=== PATIENT | female | born 1935 | race Caucasian/White ===

== ENCOUNTER 2016-11-14 07:45 | Day surgery (SDC) | payer MEDICARE, BC ==
[2016-11-14] MEDS ORDERED: Lactated Ringers 1,000 ML IV SCH (08:00)
[2016-11-14] MEDS ORDERED: Sodium Chloride 0.9% 10 ML Syringe FLUSH PRN (08:00)
[2016-11-14] MEDS ORDERED: Propofol 200 MG/20 ML SDV ONE ×2 (08:41→09:07)
--- NOTE | 2016-11-14 09:12 | PCM.PN ---
- General Info Date of Service: 11/14/16 - Review of Systems Systems Review Comment:: 80-year-old female recently noted to have guaiac positive stools referred for her first colonoscopy. She is medically stable to proceed with no significant recent change in her health status. I have discussed the proposed colonoscopy with the patient. Risks such as but not limited to bleeding and GI injury reviewed. She appears to understand and agrees to proceed. - Patient Data Vitals - most recent: Last Vital Signs Temp 98.7 F 11/14/16 08:16 Pulse 76 11/14/16 08:16 Resp 20 11/14/16 08:16 BP 111/58 L 11/14/16 08:16 Pulse Ox 96 11/14/16 08:16 Weight - most recent: 58.967 kg Med Orders - Current: Current Medications Lactated Ringer's (Ringers, Lactated) 1,000 mls @ 125 mls/hr IV ASDIRECTED EVAN Last Admin: 11/14/16 08:49 Dose: 125 mls/hr Sodium Chloride (Saline Flush) 10 ml FLUSH ASDIRECTED PRN PRN Reason: Keep Vein Open Discontinued Medications Propofol (Diprivan 20 Ml) Confirm Administered Dose 400 mg .ROUTE .STK-MED ONE Stop: 11/14/16 08:42 - Problem List Review Problem List Initiated/Reviewed/Updated: Yes - Assessment Assessment:: Guaiac positive stools - Plan Plan:: Colonoscopy
--- NOTE | 2016-11-14 09:58 | PCM.OPNOTE ---
- General Post-Op/Procedure Note Date of Surgery/Procedure: 11/14/16 Operative Procedure(s): Colonoscopy with polypectomy Findings: multiple colon polyps and moderate sigmoid diverticulosis Pre Op Diagnosis: Guaiac positive stools Post-Op Diagnosis: Colon polyps. Diverticulosis Anesthesia Technique: MAC Primary Surgeon: Sheldon Sainz Pathology: Colon polyps Output, Urine Amount: 0 EBL in mLs: 2 Complications: None Condition: Good Free Text/Narrative:: Intake & Output 11/13/16 11/14/16 11/14/16 22:59 06:59 14:59 Intake Total 700 Balance 700
[2016-11-14 10:18] VITALS: BP 110/70
--- NOTE | 2016-11-14 10:42 | OR ---
Date of Procedure: 11/14/2016 PREOPERATIVE DIAGNOSIS: Guaiac-positive stools. POSTOPERATIVE DIAGNOSES: 1. Colon polyps. 2. Diverticulosis. OPERATION PERFORMED: Colonoscopy with polypectomy. INDICATIONS FOR SURGERY: This 80-year-old female was referred for her initial colonoscopy. She was recently noted to have guaiac-positive stools. FINDINGS: Multiple polyps were noted on today's exam. She has a 12 mm pedunculated polyp in the rectum, 8 cm from the anal verge. She has a cluster of three polyps in the mid transverse colon, these range in size from 15 to 5 mm. There is a sigmoid colon polyp at 30 cm from the anal verge, which is 7 mm in size. The patient also has a moderate degree of sigmoid diverticulosis that does not appear acutely inflamed. DESCRIPTION OF PROCEDURE: The patient was taken to the operating room. She was given intravenous sedation and with her in the left lateral decubitus position, digital rectal exam was performed showing no rectal masses. The Olympus colonoscope was inserted into the rectum, retroflexed, examination of the rectal canal was performed. In the rectum, the above-described polyp was identified, this was removed with a cautery snare and retrieved into a polyp trap. The scope was then advanced to the mid transverse colon, where the cluster of three polyps was noted. The smaller of the two polyps were removed with a single pass of cautery snare and retrieved into a polyp trap. The larger polyp was removed piecemeal also with cautery snare, it did seem as if the polyp was completely removed and all fragments collected into the polyp trap. These three polyps, all in close proximity to each other, were submitted as a single specimen. The scope was then advanced to the cecum and cecal acquisition was confirmed by noting the normal internal cecal anatomy including the appendiceal orifice and ileocecal valve, and identifying the light to transilluminate the abdominal wall and the right lower quadrant. After examining the cecum, the scope was slowly withdrawn sequentially re-examining the colonic segments, an additional polyp in the sigmoid colon was identified, this was also removed with a cautery snare and retrieved into a polyp trap. There was no sign of any complication at the polypectomy sites or any other area during the colonoscopy. After the entire colon and rectum had been fully examined, the scope was then removed. The patient was taken from the operating room in satisfactory condition. ESTIMATED BLOOD LOSS: 2 mL. COMPLICATIONS: None. PROGNOSIS: Good. JOSS Sainz MD /[id number]
== END 2016-11-14 11:06 | disposition home or self-care (01) ==
LOC: LL.SDS 07:45
PROVIDERS: ATTEND Surgery
DX: D12.3 Benign neoplasm of transverse colon (principal); D12.5 Benign neoplasm of sigmoid colon; D12.8 Benign neoplasm of rectum; K57.30 Diverticulosis of large intestine without perforation or abscess without bleeding; I10 Essential (primary) hypertension; Z86.73 Personal history of transient ischemic attack (TIA), and cerebral infarction without residual deficits; E78.00 Pure hypercholesterolemia, unspecified; N39.3 Stress incontinence (female) (male); G25.0 Essential tremor; E78.5 Hyperlipidemia, unspecified; Z98.890 Other specified postprocedural states; Z85.828 Personal history of other malignant neoplasm of skin; Z79.82 Long term (current) use of aspirin; Z79.899 Other long term (current) drug therapy
CPT/HCPCS: 45385; J2704; J7120; 00810-QZ; 88305

== ENCOUNTER 2017-09-11 15:16 | Inpatient (IN) | payer MEDICARE, BC ==
[2017-09-11] MEDS ORDERED: Ondansetron 4 MG/2 ML SDV IVPUSH PRN (16:08)
[2017-09-11] MEDS ORDERED: Sodium Chloride 0.9% 1,000 ML IV SCH (16:15)
--- NOTE | 2017-09-11 16:26 | PCM.HP ---
H&P History of Present Illness - General Date of Service: 09/11/17 Admit Problem/Dx: Admission Diagnosis/Problem Admission Diagnosis/Problem GI bleed not requiring more than 4 units of blood in 24 hours, ICU, or surgery Source of Information: Patient History Limitations: Reports: No Limitations - History of Present Illness Initial Comments - Free Text/Narative: Patient presents to the clinic for physical examination and states having shortness of breath for 3 weeks, difficult to shovel snow and climb steps. Patient has to sit down for a few minutes to rest. Patient hasnt noticed any blood in her stool or urine, had colonscopy in November 2016 with three polys removed. Patient is able to lay down in bed without difficulty, has had 10 pound weight loss over the last year, denies any chest pain. Onset of Symptoms: Reports: Gradual Improves with: Reports: Rest Worsens with: Reports: Movement Associated Symptoms: Reports: Shortness of Breath - Related Data Allergies/Adverse Reactions: Allergies Allergy/AdvReac Type Severity Reaction Status Date / Time Dairy Products Allergy INTOLERANCE Verified 11/14/16 08:18 Home Medications: Home Meds Aspirin [Halfprin] 81 mg PO DAILY 11/14/16 [History] Propranolol [Inderal] 20 mg PO DAILY 11/14/16 [History] Past Medical History HEENT History: Reports: Hard of Hearing, Impaired Vision Other HEENT History: Wears glasses. Bilateral Hearing aides Cardiovascular History: Reports: Hypertension Other Cardiovascular History: Varicose veins Respiratory History: Reports: None Gastrointestinal History: Reports: None Genitourinary History: Reports: Urinary Incontinence Musculoskeletal History: Reports: Osteoarthritis, Other (See Below) Other Musculoskeletal History: Right great toe bunion Neurological History: Reports: CVA Psychiatric History: Reports: None Endocrine/Metabolic History: Reports: None Hematologic History: Reports: None Immunologic History: Reports: None Oncologic (Cancer) History: Reports: Basal Cell Carcinoma Dermatologic History: Reports: Other (See Below) Other Dermatologic History: Basal cell carcinoma - Past Surgical History Musculoskeletal Surgical History: Reports: Other (See Below) Dermatological Surgical History: Reports: Other (See Below) Social & Family History - Tobacco Use Smoking Status *Q: Never Smoker Second Hand Smoke Exposure: No - Caffeine Use Caffeine Use: Reports: Coffee - Recreational Drug Use Recreational Drug Use: No H&P Review of Systems - Review of Systems: Review Of Systems: See Below General: Reports: Malaise, Fatigue, Weight Loss HEENT: Reports: No Symptoms Pulmonary: Reports: Shortness of Breath Cardiovascular: Reports: No Symptoms Gastrointestinal: Reports: No Symptoms Genitourinary: Reports: No Symptoms Musculoskeletal: Reports: No Symptoms Skin: Reports: No Symptoms Psychiatric: Reports: No Symptoms Neurological: Reports: No Symptoms Hematologic/Lymphatic: Reports: Anemia Immunologic: Reports: No Symptoms Exam - Exam Exam: See Below - Exam General: Alert, Oriented, Cooperative HEENT: Conjunctiva Clear, EACs Clear, EOMI (hearing aids), Nares Patent, Posterior Pharynx Clear Neck: Supple, Trachea Midline Lungs: Clear to Auscultation, Normal Respiratory Effort Cardiovascular: Regular Rate, Regular Rhythm GI/Abdominal Exam: Normal Bowel Sounds, Soft, Non-Tender, No Organomegaly, No Distention, No Abnormal Bruit, No Mass, Pelvis Stable Rectal (Female) Exam: Normal Exam, Normal Rectal Tone, Heme + Stool Back Exam: Normal Inspection, Full Range of Motion Extremities: Normal Inspection, Normal Range of Motion, Non-Tender, No Pedal Edema, Normal Capillary Refill Peripheral Pulses: 1+: Dorsalis Pedis (L), Dorsalis Pedis (R) Skin: Warm, Dry, Intact Neurological: Cranial Nerves Intact, Reflexes Equal Bilateral Neuro Extensive - Mental Status: Alert, Oriented x3, Normal Mood/Affect, Normal Cognition, Memory Intact Neuro Extensive - Motor, Sensory, Reflexes: CN II-XII Intact, Normal Gait, Normal Reflexes Psychiatric: Alert, Normal Affect, Normal Mood *Q Meaningful Use (ADM) - VTE *Q VTE Criteria *Q: - Stroke *Q Stroke Criteria *Q: - AMI *Q AMI Criteria *Q: - Problem List (1) GI bleed SNOMED Code(s): 16378099 ICD Code: K92.2 - GASTROINTESTINAL HEMORRHAGE, UNSPECIFIED Status: Acute Current Visit: Yes Qualifiers: GI bleed type/associated pathology: unspecified gastrointestinal hemorrhage type Qualified Code(s): K92.2 - Gastrointestinal hemorrhage, unspecified (2) Anemia SNOMED Code(s): 881445647 ICD Code: D64.9 - ANEMIA, UNSPECIFIED Status: Acute Current Visit: Yes (3) Dyspnea on exertion SNOMED Code(s): 08449767 ICD Code: R06.09 - OTHER FORMS OF DYSPNEA Status: Acute Current Visit: Yes Problem List Initiated/Reviewed/Updated: Yes Orders Last 24hrs: Active Orders 24 hr Category Date Time Status Patient Status [ADT] Routine ADT 09/11/17 16:08 Ordered Antiembolic Devices [RC] PER UNIT ROUTINE Care 09/11/17 16:12 Ordered Cardiac Monitoring [RC] CONTINUOUS Care 09/11/17 16:11 Ordered Intake and Output [RC] QSHIFT Care 09/11/17 16:11 Ordered Oxygen Therapy [RC] PRN Care 09/11/17 16:08 Ordered Oxygen Therapy [RC] PRN Care 09/11/17 16:20 Ordered Peripheral IV Care [RC] . DIRECTED Care 09/11/17 16:12 Ordered Up to Chair [RC] ASDIRECTED Care 09/11/17 16:08 Ordered VTE/DVT Education [RC] PER UNIT ROUTINE Care 09/11/17 16:08 Ordered Vital Signs [RC] Q4H Care 09/11/17 16:08 Ordered Consult to Case Management [CONS] Routine Cons 09/11/17 16:08 Ordered Nothing per Oral Now Diet [DIET] Diet 09/11/17 Dinner Ordered Chest 2V [CR] Routine Exams 09/11/17 15:15 Taken Chest w wo Cont [CT] Urgent Exams 09/11/17 16:20 Ordered CBC WITH AUTO DIFF [HEME] DAILY Lab 09/12/17 05:11 Ordered CBC WITH AUTO DIFF [HEME] DAILY Lab 09/13/17 05:11 Ordered CBC WITH AUTO DIFF [HEME] DAILY Lab 09/14/17 05:11 Ordered CBC WITH AUTO DIFF [HEME] DAILY Lab 09/15/17 05:11 Ordered COMPREHENSIVE METABOLIC PN,CMP [CHEM] DAILY Lab 09/12/17 05:11 Ordered COMPREHENSIVE METABOLIC PN,CMP [CHEM] DAILY Lab 09/13/17 05:11 Ordered COMPREHENSIVE METABOLIC PN,CMP [CHEM] DAILY Lab 09/14/17 05:11 Ordered COMPREHENSIVE METABOLIC PN,CMP [CHEM] DAILY Lab 09/15/17 05:11 Ordered D-DIMER QUANTITATIVE [COAG] Routine Lab 09/12/17 05:11 Ordered OCCULT BLOOD DIAGNOSTIC [OP] DAILY Lab 09/11/17 16:19 Ordered OCCULT BLOOD DIAGNOSTIC [OP] DAILY Lab 09/12/17 16:19 Ordered RED BLOOD CELLS LP [BBK] Stat Lab 09/11/17 16:18 Ordered TYPE AND SCREEN [BBK] Urgent Lab 09/11/17 16:13 Ordered Ondansetron [Zofran] Med 09/11/17 16:08 Ordered 4 mg IVPUSH Q6H PRN Pantoprazole [ProTONIX IV] 80 mg Med 09/11/17 16:30 Ordered Sodium Chloride 0.9% [Normal Saline] 100 ml IV .Continuous Sodium Chloride 0.9% @ 50 MLS/HR(1000ml) Med 09/11/17 16:15 Ordered Sodium Chloride 0.9% [Normal Saline] 1,000 ml IV ASDIRECTED Sodium Chloride 0.9% [Saline Flush] Med 09/11/17 16:08 Ordered 10 ml FLUSH ASDIRECTED PRN Antiembolic Hose [OM.PC] Per Unit Routine Oth 09/11/17 16:11 Ordered Peripheral IV Insertion Adult [OM.PC] Routine Oth 09/11/17 16:08 Ordered Saline Lock Insert [OM.PC] Routine Oth 09/11/17 16:08 Ordered Transfuse RBC [Transfuse Red Blood Cells] [COMM] Oth 09/11/17 16:13 Ordered Routine Resuscitation Status Routine Resus Stat 09/11/17 16:08 Ordered Medication Orders Sodium Chloride (Normal Saline) 1,000 mls @ 50 mls/hr IV ASDIRECTED EVAN Pantoprazole Sodium 80 mg/ (Sodium Chloride) 100 mls @ 10 mls/hr IV .Continuous EVAN Ondansetron HCl (Zofran) 4 mg IVPUSH Q6H PRN PRN Reason: Nausea/Vomiting Sodium Chloride (Saline Flush) 10 ml FLUSH ASDIRECTED PRN PRN Reason: Keep Vein Open Assessment/Plan Comment:: 09/11/2017 Patient will be admitted to inpatient status. Will need blood transfusions and IV Protonix drip. Elevated D Dimer, will order chest CT scan and venous ultrasound of LE. Patient is Full Code and wanting to stay in [place] for now, but if condition worsens will agree to transfer to [place]. Will monitor labs and ordered occult stools. Abd and pelvis CT scan in the morning. Hold aspirin. Discussed with Dr Donte Mackenzie, [employer]
[2017-09-11] MEDS ORDERED: Furosemide 40 MG/4 ML VIAL IVPUSH ONE ×3 (16:52→22:00)
[2017-09-11] MEDS ORDERED: Iopamidol 755 Mg/ML 100 ML Bottle IVPUSH ONE (17:46)
[2017-09-11] MEDS: Pantoprazole 80 MG in Sodium Chloride 0.9% 100 ML IV SCH (19:39)
[2017-09-11] MEDS: Sodium Chloride 0.9% 100 ML IV SCH ×2 (19:50→22:14)
[2017-09-11] MEDS: Sodium Chloride 0.9% 10 ML Syringe FLUSH PRN (22:15)
[2017-09-12] MEDS: Sodium Chloride 0.9% 10 ML Syringe FLUSH PRN (02:26)
[2017-09-12] MEDS ORDERED: Furosemide 40 MG/4 ML VIAL IVPUSH ONE (03:00)
[2017-09-12] MEDS ORDERED: Acetaminophen 325 MG Tab PO PRN (05:42)
[2017-09-12] MEDS ORDERED: Menthol/Methyl Salicylate 85 GM Tube TOP PRN ×2 (05:42→05:52)
[2017-09-12] MEDS: Pantoprazole 80 MG in Sodium Chloride 0.9% 100 ML IV SCH (05:44)
[2017-09-12] MEDS: Propranolol 20 MG Tab PO SCH ×2 (07:05→11:37)
[2017-09-12] MEDS ORDERED: Iopamidol 612 MG/ML 100 ML Bottle IVPUSH ONE (09:53)
[2017-09-12 16:05] VITALS: BP 146/67
--- NOTE | 2017-09-12 17:05 | PCM.PN ---
- General Info Date of Service: 09/12/17 Admission Dx/Problem (Free Text): Admission Diagnosis/Problem Admission Diagnosis/Problem GI bleed not requiring more than 4 units of blood in 24 hours, ICU, or surgery Functional Status: Reports: Pain Controlled, Tolerating Diet - Review of Systems General: Reports: No Symptoms HEENT: Reports: No Symptoms Pulmonary: Reports: No Symptoms Cardiovascular: Reports: No Symptoms Gastrointestinal: Reports: No Symptoms Genitourinary: Reports: No Symptoms Musculoskeletal: Reports: No Symptoms Skin: Reports: No Symptoms Neurological: Reports: No Symptoms Psychiatric: Reports: No Symptoms - Patient Data Vitals - Most Recent: Last Vital Signs Temp 97.5 F 09/12/17 16:00 Pulse 61 09/12/17 16:00 Resp 16 09/12/17 16:00 BP 146/67 H 09/12/17 16:00 Pulse Ox 99 09/12/17 16:00 Weight - Most Recent: 124 lb I&O - Last 24 Hours: Intake & Output 09/12/17 09/12/17 09/12/17 06:59 14:59 22:59 Intake Total 975 290 Output Total 2100 300 500 Balance -1125 -10 -500 Lab Results Last 24 Hours: Laboratory Results - last 24 hr 09/11/17 09/12/17 09/12/17 Range/Units 17:15 07:18 07:18 WBC 6.0 (4.0-10.2) K/uL RBC 4.57 (3.77-5.09) M/uL Hgb 10.1 L D (11.7-15.5) g/dL Hct 33.1 L (34.0-46.0) % MCV 72.4 L D (84.0-98.0) fL MCH 22.1 L (28.2-33.3) pg MCHC 30.5 L (31.7-36.0) g/dL RDW 21.3 H (11.2-14.1) % Plt Count 381 H (150-350) K/uL Neut % (Auto) 69.0 (45.0-80.0) % Lymph % (Auto) 17.8 (10.0-50.0) % Darke % (Auto) 9.5 (2.0-14.0) % Eos % (Auto) 1.5 (0.0-5.0) % Baso % (Auto) 2.2 H (0.0-2.0) % Neut # (Auto) 4.12 (1.40-7.00) K/uL Lymph # (Auto) 1.06 (0.50-3.50) K/uL Darke # (Auto) 0.57 (0.00-1.00) K/uL Eos # (Auto) 0.09 (0.00-0.50) K/uL Baso # (Auto) 0.13 (0.00-0.20) K/uL PT (9.8-11.7) SEC INR APTT (22.1-29.8) SEC D-Dimer, Quantitative (0-400) ng/mL Sodium 140 (136-145) mmol/L Potassium 3.4 L (3.5-5.1) mmol/L Chloride 100 (98-107) mmol/L Carbon Dioxide 27.2 (21.0-32.0) mmol/L BUN 16 (7-18) mg/dL Creatinine 1.03 (0.51-1.17) mg/dL Est Cr Clr Drug Dosing 32.87 mL/min Estimated GFR (MDRD) 52 mL/min Glucose 110 H (74-106) mg/dL Calcium 9.2 (8.5-10.1) mg/dL Total Bilirubin 2.3 H (0.2-1.0) mg/dL AST 15 (15-37) U/L ALT 21 (12-78) U/L Alkaline Phosphatase 96 (46-116) IU/L Total Protein 7.5 (6.4-8.2) g/dL Albumin 4.0 (3.4-5.0) g/dL Blood Type O POSITIVE Gel Antibody Screen Negative Crossmatch See Detail 09/12/17 09/12/17 Range/Units 07:18 07:18 WBC (4.0-10.2) K/uL RBC (3.77-5.09) M/uL Hgb (11.7-15.5) g/dL Hct (34.0-46.0) % MCV (84.0-98.0) fL MCH (28.2-33.3) pg MCHC (31.7-36.0) g/dL RDW (11.2-14.1) % Plt Count (150-350) K/uL Neut % (Auto) (45.0-80.0) % Lymph % (Auto) (10.0-50.0) % Darke % (Auto) (2.0-14.0) % Eos % (Auto) (0.0-5.0) % Baso % (Auto) (0.0-2.0) % Neut # (Auto) (1.40-7.00) K/uL Lymph # (Auto) (0.50-3.50) K/uL Darke # (Auto) (0.00-1.00) K/uL Eos # (Auto) (0.00-0.50) K/uL Baso # (Auto) (0.00-0.20) K/uL PT 11.0 (9.8-11.7) SEC INR 1.0 APTT 22.6 (22.1-29.8) SEC D-Dimer, Quantitative 1460 H (0-400) ng/mL Sodium (136-145) mmol/L Potassium (3.5-5.1) mmol/L Chloride (98-107) mmol/L Carbon Dioxide (21.0-32.0) mmol/L BUN (7-18) mg/dL Creatinine (0.51-1.17) mg/dL Est Cr Clr Drug Dosing mL/min Estimated GFR (MDRD) mL/min Glucose (74-106) mg/dL Calcium (8.5-10.1) mg/dL Total Bilirubin (0.2-1.0) mg/dL AST (15-37) U/L ALT (12-78) U/L Alkaline Phosphatase (46-116) IU/L Total Protein (6.4-8.2) g/dL Albumin (3.4-5.0) g/dL Blood Type Gel Antibody Screen Crossmatch [facility] Results Last 24 Hours: Microbiology 09/12/17 10:35 Stool Occult Blood ([facility]) - Final Stool / Feces NEGATIVE OCCULT BLOOD Med Orders - Current: Current Medications Acetaminophen (Tylenol) 650 mg PO Q4H PRN PRN Reason: fever/pain Last Admin: 09/12/17 05:53 Dose: 650 mg Sodium Chloride (Normal Saline) 1,000 mls @ 50 mls/hr IV ASDIRECTED EVAN Last Admin: 09/11/17 19:38 Dose: 50 mls/hr Sodium Chloride (Normal Saline) 100 mls @ 50 mls/hr IV ASDIRECTED [facility] Last Admin: 09/11/17 22:14 Dose: 50 mls/hr Methyl Salicylate (Icy Hot Cream) 0 gm TOP QID PRN PRN Reason: Muscle Spasms Last Admin: 09/12/17 06:13 Dose: 1 applic Ondansetron HCl (Zofran) 4 mg IVPUSH Q6H PRN PRN Reason: Nausea/Vomiting Pantoprazole Sodium (Protonix Iv) 40 mg IVPUSH Q12H [facility] Propranolol HCl (Inderal) 20 mg PO TID [facility] Last Admin: 09/12/17 11:37 Dose: 20 mg Sodium Chloride (Saline Flush) 10 ml FLUSH ASDIRECTED PRN PRN Reason: Keep Vein Open Last Admin: 09/12/17 02:26 Dose: 10 ml Discontinued Medications Furosemide (Lasix) 40 mg IVPUSH NOW ONE Stop: 09/11/17 22:01 Furosemide (Lasix) 40 mg IVPUSH NOW ONE Stop: 09/11/17 16:53 Last Admin: 09/11/17 17:38 Dose: Not Given Furosemide (Lasix) 40 mg IVPUSH NOW ONE Stop: 09/12/17 03:01 Last Admin: 09/12/17 02:26 Dose: 40 mg Furosemide (Lasix) 40 mg IVPUSH NOW ONE Stop: 09/11/17 22:01 Last Admin: 09/11/17 22:14 Dose: 40 mg Pantoprazole Sodium 80 mg/ (Sodium Chloride) 100 mls @ 10 mls/hr IV .Continuous [facility] Last Admin: 09/12/17 05:44 Dose: 10 mls/hr Iopamidol (Isovue-370 (76%)) 100 ml IVPUSH ONETIME ONE Stop: 09/11/17 17:47 Last Admin: 09/12/17 11:37 Dose: Not Given Iopamidol (Isovue-300 (61%)) 100 ml IVPUSH ONETIME ONE Stop: 09/12/17 09:54 Last Admin: 09/12/17 10:40 Dose: 100 ml Methyl Salicylate (Icy Hot Cream) 1 gm TOP ASDIRECTED PRN PRN Reason: Muscle Spasms - Exam General: Alert, Cooperative, No Acute Distress HEENT: Mucous Membr. Moist/[place] Neck: Trachea Midline, No JVD Lungs: Clear to Auscultation, Normal Respiratory Effort Cardiovascular: Regular Rate, Regular Rhythm GI/Abdominal Exam: Soft, Non-Tender, No Distention (Female) Exam: Deferred Back Exam: Normal Inspection Extremities: Normal Inspection, Non-Tender, No Pedal Edema Skin: Warm, Dry, Intact Neurological: No New Focal Deficit Psy/Mental Status: Alert, Normal Affect, Normal Mood - Problem List & Annotations (1) Anemia SNOMED Code(s): 744057639 Code(s): D64.9 - ANEMIA, UNSPECIFIED Status: Acute Priority: High Current Visit: Yes Qualifiers: Anemia type: iron deficiency Iron deficiency anemia type: inadequate dietary iron intake Qualified Code(s): D50.8 - Other iron deficiency anemias (2) Dyspnea SNOMED Code(s): 463411053 Code(s): R06.00 - DYSPNEA, UNSPECIFIED Status: Acute Priority: High Current Visit: Yes Qualifiers: Dyspnea type: dyspnea on exertion Qualified Code(s): R06.09 - Other forms of dyspnea (3) Dyspnea on exertion SNOMED Code(s): 15770561 Code(s): R06.09 - OTHER FORMS OF DYSPNEA Status: Acute Priority: High Current Visit: Yes (4) GI bleed SNOMED Code(s): 06820362 Code(s): K92.2 - GASTROINTESTINAL HEMORRHAGE, UNSPECIFIED Status: Acute Priority: High Current Visit: Yes Qualifiers: GI bleed type/associated pathology: unspecified gastrointestinal hemorrhage type Qualified Code(s): K92.2 - Gastrointestinal hemorrhage, unspecified (5) Hypertension SNOMED Code(s): 97184773 Code(s): I10 - ESSENTIAL (PRIMARY) HYPERTENSION Status: Acute Priority: Medium Current Visit: Yes Qualifiers: Hypertension type: essential hypertension Qualified Code(s): I10 - Essential (primary) hypertension (6) Essential tremor SNOMED Code(s): 808587107 Code(s): G25.0 - ESSENTIAL TREMOR Status: Acute Priority: Low Current Visit: Yes - Problem List Review Problem List Initiated/Reviewed/Updated: Yes - My Orders Last 24 Hours: My Active Orders 09/11/17 19:45 Sodium Chloride 0.9% [Normal Saline] 100 ml IV ASDIRECTED 09/12/17 05:42 Acetaminophen [Tylenol] 650 mg PO Q4H PRN 09/12/17 05:52 Menthol/Methyl Salicylate [Icy Hot Cream] 0 gm TOP QID PRN 09/12/17 16:57 Discontinue Telemetry Monitoring [Cardiac Monitoring Discontinue] [RC] Click to Edit Peripheral IV Discontinue [OM.PC] Routine 09/12/17 17:00 Ready for Discharge [RC] PER UNIT ROUTINE 09/12/17 Dinner Regular Diet [DIET] - Plan Plan:: 09/11/2017 Patient will be admitted to inpatient status. Will need blood transfusions and IV Protonix drip. Elevated D Dimer, will order chest CT scan and venous ultrasound of LE. Patient is Full Code and wanting to stay in [place] for now, but if condition worsens will agree to transfer to [place]. Will monitor labs and ordered occult stools. Abd and pelvis CT scan in the morning. Hold aspirin. Discussed with Dr Donte Mackenzie, [employer] 09/12/17 Donte Arreguin MD Feels good. Much better. H/H improved after 2 units transfusion.
[2017-09-12] MEDS ORDERED: Pantoprazole 40 MG Vial IVPUSH SCH (18:00)
== END 2017-09-12 17:58 | disposition home or self-care (01) | DRG 812 ==
LOC: LL.DI 15:16 → LL.MS 16:03
PROVIDERS: ADMIT Nurse Practitioner Family; ATTEND Family Medicine
PROC: 30233N1 Transfusion of Nonautologous Red Blood Cells into Peripheral Vein, Percutaneous Approach (ICD-10-PCS; principal; 2017-09-11)
DX: D64.9 Anemia, unspecified (principal); K92.2 Gastrointestinal hemorrhage, unspecified; R06.00 Dyspnea, unspecified; R06.09 Other forms of dyspnea; I10 Essential (primary) hypertension; G25.0 Essential tremor; Z91.011 Allergy to milk products; Z79.82 Long term (current) use of aspirin; Z79.899 Other long term (current) drug therapy; H54.7 Unspecified visual loss; H91.93 Unspecified hearing loss, bilateral; R32 Unspecified urinary incontinence; M19.90 Unspecified osteoarthritis, unspecified site; Z86.73 Personal history of transient ischemic attack (TIA), and cerebral infarction without residual deficits
CPT/HCPCS: 36415; 36430; 71046; 71275; 74177; 80053; 82272; 85025; 85379; 85610; 85730; 86850; 86900; 86901; 86920; 86922; 93970; A9270-GY; C9113; J1940; J7030; J7050; P9016; Q9967

== ENCOUNTER 2017-10-09 12:28 | Day surgery (SDC) | payer MEDICARE, BC ==
[~2017-10-09 12:28] MED LIST: Sodium Chloride 0.9% 10 ML Syringe FLUSH PRN
[2017-10-09] MEDS: Lactated Ringers 1,000 ML IV SCH (13:40)
[2017-10-09] MEDS ORDERED: fentaNYL 100 MCG/2 ML SDV ONE ×2 (13:56→14:03)
[2017-10-09] MEDS ORDERED: Midazolam 1 MG/ML 2 ML SDV ONE ×2 (13:57→14:03)
[2017-10-09] MEDS ORDERED: Propofol 200 MG/20 ML SDV ONE ×2 (13:57→14:03)
[2017-10-09] MEDS ORDERED: Lidocaine 2% 5 ML SDV ONE (14:03)
--- NOTE | 2017-10-09 14:17 | PCM.OPNOTE ---
- General Post-Op/Procedure Note Date of Surgery/Procedure: 10/09/17 Operative Procedure(s): EGD Findings: Hiatal Hernia Pre Op Diagnosis: Anemia Post-Op Diagnosis: Same Anesthesia Technique: MAC Primary Surgeon: Jairo Rico Anesthesia Provider: Vidya Malagon EBBari in mLs: 0 Complications: None Condition: Good
[2017-10-09 14:38] VITALS: BP 141/61
--- NOTE | 2017-10-09 15:58 | OR ---
Date of Procedure: 10/09/2017 PREOPERATIVE DIAGNOSIS: Anemia. POSTOPERATIVE DIAGNOSIS: Hiatal hernia. PROCEDURE: EGD. ANESTHESIA: IV sedation. PREOPERATIVE DIAGNOSIS: The patient was brought to the procedure, where she was placed on her left side and IV sedation administered. Oral bite block was placed and the upper endoscope advanced into the esophagus under direct vision without difficulty. Vocal cords were visualized and were normal. The scope was advanced to the 3rd portion of the duodenum. Duodenum and pylorus were normal. Antrum and body of the stomach were normal. Retroflexion reveals a hiatal hernia. Squamocolumnar junction was located at 31 cm from the incisors and diaphragmatic opening at 35 cm from the incisors, making this a 4 cm hiatal hernia. The squamocolumnar junction appears normal. There is no source of bleeding identified. There was no evidence of healed ulcers, gastritis, or other pathology. Air was removed from the stomach and the scope withdrawn through the remaining esophagus which appears normal. The patient tolerated the procedure well and returned to recovery in stable condition. The patient will follow up with Sri Mackenzie for ongoing evaluation. JOSS MILES MD /[id number]
== END 2017-10-09 16:13 | disposition home or self-care (01) ==
LOC: LL.SDS 12:28
PROVIDERS: ATTEND Surgery
DX: K44.9 Diaphragmatic hernia without obstruction or gangrene (principal); Z91.011 Allergy to milk products
CPT/HCPCS: J2250; J2704; J3010; J7120

== ENCOUNTER 2017-10-23 11:35 | Day surgery (SDC) | payer MEDICARE, BC ==
[~2017-10-23 11:35] MED LIST changes: +Lactated Ringers 1,000 ML IV SCH
[2017-10-23] MEDS ORDERED: Propofol 200 MG/20 ML SDV ONE ×2 (13:32→13:38)
[2017-10-23] MEDS ORDERED: Midazolam 1 MG/ML 2 ML SDV ONE ×2 (13:32→13:38)
--- NOTE | 2017-10-23 13:39 | PCM.HPR ---
H & P Addendum review - H & P Addendum Review Date of Original H & P: 10/17/17 Date Reviewed: 10/23/17 Time Reviewed: 13:39 Patient was Examined: No Changes
--- NOTE | 2017-10-23 14:18 | PCM.OPNOTE ---
- General Post-Op/Procedure Note Date of Surgery/Procedure: 10/23/17 Operative Procedure(s): Colonoscopy with polypectomy Findings: polyps, tics Pre Op Diagnosis: Anemia. Hx Polyps Post-Op Diagnosis: same Anesthesia Technique: MAC Primary Surgeon: Jairo Rico Anesthesia Provider: Vidya Malagon Complications: None Condition: Good
[2017-10-23 18:09] VITALS: BP 123/77
--- NOTE | 2017-10-23 21:39 | OR ---
DATE OF PROCEDURE: 10/23/2017 PHYSICIAN: JOSE JUAN MILES MD PRE-PROCEDURE DIAGNOSIS: 1. History of colon polyps. 2. Anemia. POST-PROCEDURE DIAGNOSIS: 1. Diverticulosis. 2. Colon polyps. PROCEDURE PERFORMED: Colonoscopy with polypectomy. ANESTHESIA: IV sedation. PROCEDURE IN DETAIL: The patient was brought to the procedure room, where she was placed on her left side and IV sedation administered. Digital rectal exam was performed, which was normal. Colonoscope was inserted and advanced to the level of the cecum without difficulty. Cecal position was confirmed by identifying the appendiceal lumen and ileocecal valve. Prep was good, and surfaces were well visualized. In the ascending colon, was a 6 mm sessile polyp removed with a hot biopsy forceps and sent for pathology review. The transverse colon was normal. In the descending colon, was a flat 6 mm sessile polyp mostly removed with a cautery snare and the remaining cauterized. This was retrieved in the polyp trap. There were diverticula throughout the entire colon, but most notable in the sigmoid colon. Rectum was normal, and retroflexion was normal. Air was removed, and the scope withdrawn. The patient tolerated the procedure well and returned to recovery in stable condition. I will have the patient follow up with ROGELIO [facility], next week for review of pathology report. If the polyps are adenomatous, she should consider repeat colonoscopy again in 3 years. If the polyps are hyperplastic, she would not need to undergo any further colonoscopies. /[id number]
== END 2017-10-23 16:00 | disposition home or self-care (01) ==
LOC: LL.SDS 11:35
PROVIDERS: ATTEND Surgery
DX: D12.2 Benign neoplasm of ascending colon (principal); D12.4 Benign neoplasm of descending colon; K57.30 Diverticulosis of large intestine without perforation or abscess without bleeding; I10 Essential (primary) hypertension; D64.9 Anemia, unspecified; E78.00 Pure hypercholesterolemia, unspecified; Z86.010 Personal history of colon polyps; Z86.73 Personal history of transient ischemic attack (TIA), and cerebral infarction without residual deficits; Z79.899 Other long term (current) drug therapy; Z91.018 Allergy to other foods
CPT/HCPCS: 00731; 36415; 45384; 45385; 85018; 88305; J2250; J2704; J7120